=== PATIENT | male | born 2000 | race Caucasian/White ===

== ENCOUNTER 2020-02-15 12:33 | Outpatient (REF) | payer SELFPAY ==
[2020-02-15 23:10] LABS: MCH 29.3 pg (27.0-33.0); MCHC 32.6 % (32.0-36.0); MPV 11.3 fL (8.0-11.0); Platelet Count 211 10^3/uL (130-400); RBC 4.78 10^6/uL (4.36-5.78); RDW 12.5 % (11.8-14.1); RDW-SD 41.5 fL; WBC 5.07 10^3/uL (4.4-10.8)
[2020-02-15 23:14] LABS: ALT 41 U/L (16-63); AST 24 U/L (15-37); Albumin 4.2 g/dL (3.4-5.0); Alkaline Phosphatase 69 U/L (46-116); Anion Gap 6.7 mmol/L (3-11); BUN 14 mg/dL (7-18); Bilirubin, Total 0.5 mg/dL (0.2-1.0); CO2 28.3 mmol/L (21.0-32.0); Calcium 9.3 mg/dL (8.5-10.1); Chloride 107 mmol/L (98-107); Ferritin 116 ng/mL (26-388); Folate 16.4 ng/mL (8.6-20.0); Glucose 93 mg/dL (74-106); Potassium 4.3 mmol/L (3.5-5.1); Sodium 142 mmol/L (136-145); Total Protein 7.3 g/dL (6.4-8.2); Vitamin B12 701 pg/mL (193-986)
[2020-02-15 23:53] LABS: ESR 9 mm/hr (0-15)
== END 2020-02-15 12:53 ==
LOC: NCHCN 12:33
PROVIDERS: PCP Nurse Practitioner Family; Visit Provider Nurse Practitioner Community Health
DX: M79.643 Pain in unspecified hand (principal); G60.9 Hereditary and idiopathic neuropathy, unspecified; Z72.4 Inappropriate diet and eating habits
CPT/HCPCS: 80053; 85027; 85652; 82607; 82728; 82746; 86140